=== PATIENT | male | born 1955 | race Caucasian/White ===

== ENCOUNTER 2017-02-24 23:01 | Emergency (ER) | payer OTHER ==
--- NOTE | ~2017-02-24 | CR63 ---
[facility] A Service of [facility] & [facility] RADIOLOGY TEXT RESULTS PATIENT: DENY PRETTY LOCATION: [facility] : 51 UNIT #: [id number] AGE: [address]: Ryan Orta MD SEX: M ORDER DR: [id number] [facility] [address] [place], [place] [address] [id number] MR#: [id number] Acc #: [id number] NAME: DENY PRETTY. : 1955 SEX: M STUDY DATE/TIME: 02/24/2017 22:00 UNIT: [facility] ROOM: STUDY DESCRIPTION: CR Chest 2 View Attending Physician: Ryan Orta M.D. Ordering Physician: Lina Mckinnon M.D. Primary Care Physician: Malachi Lopes M.D. MEDICAL IMAGING REPORT This report is preliminary unless electronic signature is present EXAM Chest 2 views 02/24/2017 INDICATION 61-year-old male with shortness of air, possible congestive heart failure, symptoms a week. Prostate cancer, chest pressure. TECHNIQUE 2 view chest compared with 02/25/2014. FINDINGS Cardiac silhouette borderline in size and stable. Vascularity is unremarkable. Lung volumes are low. There is old healed granulomatous disease. There is some probable faint atelectasis in the left lung base. Multilevel thoracic spondylosis noted. Incidental hiatal hernia. IMPRESSION Low lung volumes with probable atelectasis in the left lung base. No definite superimposed active disease. Chronic granulomatous changes. Dictated by... Darin Blas M.D. THIS IS AN ELECTRONICALLY VERIFIED REPORT Darin Blas M.D. at 02/25/2017 10:02 PM WILI/tavni TD: 02/25/2017 10:06 JOB #: [id number] MEDICAL IMAGING REPORT Page 1 of 1 COPY
--- NOTE | ~2017-02-24 | CT2 ---
[facility] A Service of [facility] & [facility] RADIOLOGY TEXT RESULTS PATIENT: DENY PRETTY LOCATION: [facility] : 51 UNIT #: [id number] AGE: [address]: Ryan Orta MD SEX: M ORDER DR: [id number] [facility] [address] [place], [place] [address] [id number] E MR#: [id number] Acc #: [id number] NAME: DENY PRETTY. : 1955 SEX: M STUDY DATE/TIME: 02/25/2017 1:31 UNIT: [facility] ROOM: STUDY DESCRIPTION: CT Abd and Pelv W Cont Attending Physician: Ryan Orta M.D. Ordering Physician: Ryan Orta M.D. Primary Care Physician: Malachi Lopes M.D. MEDICAL IMAGING REPORT This report is preliminary unless electronic signature is present EXAM Abdomen and pelvis CT with contrast, 02/25/2017 INDICATION 61-year-old male with shortness of air weakness, nausea, bloating, discomfort for a week, worse today. Pain in the entire abdomen extending into the neck, diabetes and hypertension, status post cholecystectomy. TECHNIQUE Contrast-enhanced abdomen and pelvis CT was performed. This CT exam was performed with one or more of the following radiation dose reduction techniques: automatic exposure control, adjustment of mA and/or kV according to patient size, and iterative reconstruction. COMPARISON 09/03/[address] ABDOMEN: Included lung bases clear. No pericardial or pleural effusion. Moderate-sized hiatal hernia. Aorta demonstrates atherosclerotic change but no aneurysm or dissection. Spleen and adrenal glands are unremarkable. The pancreas is unremarkable and the gallbladder is surgically absent. There is advanced fatty infiltration of the liver. There is decreased attenuation of the liver centrally bordering the medial left and anterior right hepatic segments. This may represent additional fatty change within the liver. Underlying mass however not excluded. This could be best further assessed with multiphase protocol MRI or CT if the patient is not a candidate for MRI with and without contrast on a non-emergent basis. Kidneys unremarkable. CT PELVIS: Prostate enlarged. There is mild wall thickening of the STS. [facility] A Service of [facility] & [facility] RADIOLOGY TEXT RESULTS PATIENT: DENY PRETTY LOCATION: [facility] : 51 UNIT #: [id number] AGE: [address]: Ryan Orta MD SEX: M ORDER DR: bladder which may relate to the prostatomegaly and outlet obstruction. Findings are similar to the prior 2013 study. No drainable fluid collection in the pelvis. Small focus of fat necrosis at the junction of the distal descending and proximal sigmoid colon unchanged. The appendix is normal. Tiny inguinal hernias that contain fat only are present. The patient is status post anterior abdominal wall hernia repair. No evidence of bowel obstruction. Small umbilical hernia containing fat only. There is no suspicious bone lesion. There are degenerative changes in the lumbar spine. IMPRESSION 1. No clearly acute process in the abdomen or pelvis. No bowel obstruction, drainable fluid collection or focal area of inflammatory change. 2. Advanced fatty infiltration of the liver which is new compared to the prior study. Probable more confluent mass-like fatty change centrally within the liver. This could be best further assessed with a non-emergent outpatient MRI as described above. 3. Prostatomegaly and probable bladder wall thickening related to outlet obstruction, unchanged. 4. Hiatal hernia and probable fundoplication changes related to Markie procedure similar to the prior study. 5. The appendix is normal. 6. Status post anterior abdominal wall hernia repair. Umbilical hernia containing fat present. 7. Small focus of fat necrosis in the left lower quadrant is stable. Dictated by... Darin Blas M.D. THIS IS AN ELECTRONICALLY VERIFIED REPORT Darin Blas M.D. at 02/25/2017 10:03 PM Jose TD: 02/25/2017 10:30 JOB #: [id number] MEDICAL IMAGING REPORT Page 1 of 1 COPY
--- NOTE | ~2017-02-24 | EKG ---
PATIENT: DENY PRETTY UNIT #: [id number] Ventricular Rate: 100 BPM Atrial Rate: 100 BPM P-R Interval: 180 ms QRS Duration: 92 ms Q-T Interval: 334 ms QTC Calculation(Bezet): 430 ms P [place]: 56 degrees Calculated R [place]: 4 degrees Calculated T [place]: 37 degrees Diagnosis Line: Normal sinus rhythm Diagnosis Line: Low voltage QRS Diagnosis Line: Abnormal ECG Diagnosis Line: When compared with ECG of 25-FEB-2014 18:15, Diagnosis Line: No significant change was found Diagnosis Line: Confirmed by GINNY DEL CID MD ([id number]) on 02/25/2017 Diagnosis Line: 11:00:10 PM INTERPRETING MD: MARIA EUGENIA CORONADO
[2017-02-24 22:51] LABS: BASOPHIL# 0.1 X10e3 (0-0.3); BASOPHIL% 1.3 % (0-2.5); EOSINOPHIL# 0.2 X10e3 (0-0.7); EOSINOPHIL% 1.8 % (0.0-7.0); HEMATOCRIT 40.1 % (38.0-50.0); HEMOGLOBIN 13.3 gm/dL (13.0-16.0); LYMPHOCYTE# 2.2 X10e3 (1.0-3.5); LYMPHOCYTE% 25.7 % (17.0-45.0); MEAN CORPUSCULAR HEMOGLOBIN 31.8 PG (28-34); MEAN CORPUSCULAR HGB CONC 33.2 g/dL (30-36); MEAN PLATELET VOLUME 8.4 FL (6.5-11.5); MONOCYTE# 0.7 X10e3 (0-1.0); MONOCYTE% 8.4 % (3.0-12.0); NEUTROPHIL# 5.4 X10e3 (1.5-7.1); NEUTROPHIL% 62.8 % (40-75); PLATELET COUNT 190 X10e3 (140-420); RED BLOOD COUNT 4.18 X10e (3.90-5.60); RED CELL DISTRIBUTION WIDTH 13.8 % (11.0-15.5); WHITE BLOOD COUNT 8.6 X10e3 (4.0-10.5)
[2017-02-24 22:52] LABS: DIFF IND NO
[~2017-02-24 23:01] MED LIST: ALLOPURINOL300 MG PO; AMARYL PO; AMBIEN CR; ANDROGEL2.5 GM; BENTYL10 M1; CALAN PO; CARBIDOPA-LEVO1 EACH PO; CARDURA; CARDURA8 MG PO; CENTRUM240 ML; COZAAR100 MG PO; DUONEB 2.5-0.5 M3 ML NEB; LASIX PO; LIPITOR; LIPITOR PO; LIPITOR80 MG PO; LORTAB 10/500 T1 TAB PO; LOSARTAN POTASS50 MG PO; LYRICA; METFORMIN; METFORMIN PO; MICARDIS HCT 801 TAB; MICARDIS/HCTZ; MORGIDOX100 MG PO; MULTI VITAMIN1 EACH PO; NEURONTIN PO; NIACIN500 M2 PO; PRAVACHOL PO; PREDNISONE PO; TRAZODONE PO; TYLOX 5/500 CAP1 CAP; VICODIN 5/500 T1 TAB; VICTOZA0.6 MG/0.1 SQ; VOLTAREN75 MG PO
[2017-02-24 23:03] LABS: POC - CKMB 1.7 ng/mL (0.0-7.9); POC - TROPONIN <0.05 ng/mL (<=0.05)
[2017-02-24 23:05] LABS: INFLUENZA A NEG (NEG); INFLUENZA B NEG (NEG)
[2017-02-24 23:07] LABS: PARTIAL THROMBOPLASTIN TIME 24.3 SECONDS (23.5-31.3); PROTHROMBIN TIME (PATIENT) 10.7 SECONDS (9.6-11.5)
[2017-02-24 23:14] LABS: BUN/CREATININE RATIO 27.27; CALCIUM SERUM 9.1 mg/dL (8.4-10.2); CREATININE SERUM 1.1 mg/dL (0.6-1.4); GLOM FILT RATE Estimated 71.1 mL/min (>60); POTASSIUM 4.4 mmol/L (3.5-5.1)
[2017-02-25 00:11] LABS: URINE SOURCE CLEAN CATCH
[2017-02-25 00:16] LABS: URINE APPEARANCE CLEAR; URINE BILIRUBIN NEG (NEG); URINE BLOOD NEG (NEG); URINE COLOR YELLOW; URINE GLUCOSE 250 MG/DL (NEG); URINE KETONE TRACE (NEG); URINE LEUKOCYTE ESTERASE NEG (NEG); URINE NITRATE NEG (NEG); URINE PROTEIN NEG (NEG); URINE SPECIFIC GRAVITY 1.021 (1.003-1.035); URINE UROBILINOGEN 0.2 MG/DL (NEG)
[2017-02-25 00:20] LABS: CULTURE INDICATED? NO
[2017-02-25 01:50] LABS: POC - CKMB 1.4 ng/mL (0.0-7.9); POC - TROPONIN <0.05 ng/mL (<=0.05)
== END 2017-02-25 02:32 | disposition home or self-care (01) ==
LOC: CED 23:01
PROVIDERS: Emergency Medicine; Student in an Organized Health Care Education/Training Program
DX: R06.02 Shortness of breath (principal); I10 Essential (primary) hypertension
CPT/HCPCS: 36415; 71020; 74177; 80048; 81003; 82553; 83880; 84484; 85025; 85610; 85730; 87804; 93005; 94640; 99284; Q9967

== ENCOUNTER 2017-06-16 09:54 | Emergency (ER) | payer OTHER ==
[~2017-06-16] VITALS: Ht 185.4 cm; Wt 130.2 kg
--- NOTE | ~2017-06-16 | EKG ---
PATIENT: DENY PRETTY UNIT #: [id number] Ventricular Rate: 98 BPM Atrial Rate: 98 BPM P-R Interval: 180 ms QRS Duration: 94 ms Q-T Interval: 332 ms QTC Calculation(Bezet): 423 ms P [place]: 57 degrees Calculated R [place]: 15 degrees Calculated T [place]: 32 degrees Diagnosis Line: Normal sinus rhythm Diagnosis Line: Normal ECG Diagnosis Line: When compared with ECG of 24-FEB-2017 19:09, Diagnosis Line: No significant change was found Diagnosis Line: Confirmed by NEYDA PARIKH MD ([id number]) on Diagnosis Line: 06/17/2017 12:20:50 PM INTERPRETING MD: LEATHA
[2017-06-16 10:42] LABS: BASOPHIL# 0.1 X10e3 (0-0.3); BASOPHIL% 0.8 % (0-2.5); EOSINOPHIL# 0.2 X10e3 (0-0.7); EOSINOPHIL% 1.1 % (0.0-7.0); HEMATOCRIT 38.3 % (38.0-50.0); HEMOGLOBIN 12.4 gm/dL (13.0-16.0); LYMPHOCYTE# 1.4 X10e3 (1.0-3.5); LYMPHOCYTE% 9.2 % (17.0-45.0); MEAN CELL VOLUME 96.4 FL (83-96); MEAN CORPUSCULAR HEMOGLOBIN 31.3 PG (28-34); MEAN CORPUSCULAR HGB CONC 32.4 g/dL (30-36); MEAN PLATELET VOLUME 8.5 FL (6.5-11.5); MONOCYTE% 6.8 % (3.0-12.0); NEUTROPHIL# 12.1 X10e3 (1.5-7.1); NEUTROPHIL% 82.1 % (40-75); PLATELET COUNT 244 X10e3 (140-420); RED BLOOD COUNT 3.98 X10e (3.90-5.60); RED CELL DISTRIBUTION WIDTH 13.9 % (11.0-15.5); WHITE BLOOD COUNT 14.8 X10e3 (4.0-10.5)
[2017-06-16 10:43] LABS: DIFF IND NO
[2017-06-16 11:12] LABS: URINE SOURCE CLEAN CATCH
[2017-06-16 11:23] LABS: URINE APPEARANCE TURBID; URINE BILIRUBIN NEG (NEG); URINE BLOOD 1+ (NEG); URINE COLOR YELLOW; URINE GLUCOSE >1000 MG/DL (NEG); URINE KETONE NEG (NEG); URINE LEUKOCYTE ESTERASE 3+ (NEG); URINE NITRATE NEG (NEG); URINE PROTEIN 2+ (NEG); URINE SPECIFIC GRAVITY 1.019 (1.003-1.035); URINE UROBILINOGEN 0.2 MG/DL (NEG)
[2017-06-16 11:26] LABS: CULTURE INDICATED? YES; URINE BACTERIA AUWI 3+ (NEGATIVE); URINE SQUAMOUS EPITHELIAL CELL NONE SEEN /[HPF]; UWBCS1 AUWI INNUM (0-5)
[2017-06-16 11:29] LABS: ALBUMIN SERUM 3.8 g/dL (3.5-5.0); BILIRUBIN,TOTAL 0.4 mg/dL (0.2-2.0); BUN/CREATININE RATIO 19.28; CALCIUM SERUM 10.2 mg/dL (8.4-10.2); CREATININE SERUM 1.4 mg/dL (0.6-1.4); GLOM FILT RATE Estimated 52.7 mL/min (>60); POTASSIUM 4.7 mmol/L (3.5-5.1); PROTEIN TOTAL SERUM 7.3 g/dL (6.0-8.3)
== END 2017-06-16 13:24 | disposition home or self-care (01) ==
LOC: CED 09:54
PROVIDERS: Emergency Medicine
DX: N30.90 Cystitis, unspecified without hematuria (principal); I10 Essential (primary) hypertension
CPT/HCPCS: 80053; 81003; 85025; 87086; 87088; 87186; 93005; 96361; 96365; 99284; J0696